=== PATIENT | male | born 1980 | race African-American/Black ===

== ENCOUNTER 2021-09-22 16:00 | Outpatient (CLI) | payer BC | END 2021-09-22 16:01 | disposition home or self-care (01) | LOC: SLEEPLAB 16:00 | PROVIDERS: ATTEND Family Medicine | DX: G47.10 Hypersomnia, unspecified (principal); R53.83 Other fatigue; R40.0 Somnolence; E66.9 Obesity, unspecified; R06.83 Snoring; I10 Essential (primary) hypertension; G47.33 Obstructive sleep apnea (adult) (pediatric); Z68.41 Body mass index [BMI] 40.0-44.9, adult | CPT/HCPCS: 95806 ==

== ENCOUNTER 2022-02-19 19:30 | Outpatient (CLI) | payer BC | END 2022-02-19 19:31 | disposition home or self-care (01) | LOC: SLEEPLAB 19:30 | PROVIDERS: ATTEND Family Medicine | DX: G47.9 Sleep disorder, unspecified (principal); G47.10 Hypersomnia, unspecified; G47.33 Obstructive sleep apnea (adult) (pediatric) | CPT/HCPCS: 95811 ==